=== PATIENT | male | born 1970 | race African-American/Black ===

== ENCOUNTER 2017-02-03 12:51 | Emergency (ER) | payer SELFPAY ==
[~2017-02-03 12:51] MED LIST: NO MEDS
== END 2017-02-03 13:34 | disposition left against medical advice (07) ==
LOC: EMS 12:52
DX: Z00.8 Encounter for other general examination (principal); Z53.21 Procedure and treatment not carried out due to patient leaving prior to being seen by health care provider

== ENCOUNTER 2017-02-03 17:21 | Emergency (ER) | payer SELFPAY ==
[~2017-02-03] VITALS: Ht 188 cm; Wt 90.9 kg
[2017-02-03 17:24] VITALS: BP 130/75
== END 2017-02-03 20:49 | disposition left against medical advice (07) ==
LOC: EMS 17:30
DX: F22 Delusional disorders (principal); F12.90 Cannabis use, unspecified, uncomplicated; F17.210 Nicotine dependence, cigarettes, uncomplicated; Z53.21 Procedure and treatment not carried out due to patient leaving prior to being seen by health care provider

== ENCOUNTER 2017-02-03 21:12 | Emergency (ER) | payer SELFPAY ==
[~2017-02-03] VITALS: Ht 185.4 cm; Wt 90.9 kg
[2017-02-03 21:14] VITALS: BP 165/102
== END 2017-02-03 22:09 | disposition left against medical advice (07) ==
LOC: EMS 21:14
DX: Z00.8 Encounter for other general examination (principal); F12.90 Cannabis use, unspecified, uncomplicated; F17.210 Nicotine dependence, cigarettes, uncomplicated; Z53.21 Procedure and treatment not carried out due to patient leaving prior to being seen by health care provider

== ENCOUNTER 2017-02-22 11:39 | Emergency (ER) | payer SELFPAY ==
[~2017-02-22] VITALS: Ht 185.4 cm; Wt 86.4 kg
[2017-02-22 11:47] VITALS: BP 147/92
[2017-02-22] MEDS ORDERED: KETOROLAC TROMETHAMINE 60 MG/2 ML VIAL IM ONE (14:00)
== END 2017-02-22 14:30 | disposition left against medical advice (07) ==
LOC: EMS 11:40
DX: M25.572 Pain in left ankle and joints of left foot (principal); F12.90 Cannabis use, unspecified, uncomplicated; F17.210 Nicotine dependence, cigarettes, uncomplicated; Z53.21 Procedure and treatment not carried out due to patient leaving prior to being seen by health care provider
CPT/HCPCS: 29515; 99281

== ENCOUNTER 2018-08-05 14:59 | Inpatient (IN) | payer OTHER, MEDICAID ==
[~2018-08-05] VITALS: Ht 185.4 cm; Wt 88.8 kg
[2018-08-05 16:54] LABS: GLUCOSE,POINT OF CARE 93 MG/DL (70-110)
[2018-08-05] MEDS ORDERED: LORazepam 2 MG/ML VIAL ONE (17:14)
[2018-08-05] MEDS ORDERED: DiphenhydrAMINE HCL 50 MG/ML VIAL ONE (17:14)
[2018-08-05] MEDS ORDERED: DiphenhydrAMINE HCL 50 MG/ML VIAL IM ONE (17:15)
[2018-08-05] MEDS ORDERED: HALOPERIDOL LACTATE 5 MG/ML VIAL IM ONE (17:15)
[2018-08-05] MEDS ORDERED: HALOPERIDOL LACTATE 5 MG/ML VIAL ONE (17:15)
[2018-08-05] MEDS ORDERED: LORazepam 2 MG/ML VIAL IM ONE (17:15)
[2018-08-05] MEDS ORDERED: PALI156D IM (17:27)
[2018-08-05] MEDS ORDERED: METO25 PO (17:27)
[2018-08-05 17:52] LABS: BASOPHILS % (AUTO) 0.5 % (0.0-2.0); EOSINOPHILS % (AUTO) 2.2 % (1.0-6.0); HEMATOCRIT 36.6 % (41-53); HEMOGLOBIN 11.8 g/dL (13.5-17.5); LYMPHOCYTES # (AUTO) 1.9 K/uL (1.0-4.8); LYMPHOCYTES % (AUTO) 23.2 % (22.0-44.0); MEAN CORPUSCULAR HEMOGLOBIN 28.5 pg (26.0-34.0); MEAN CORPUSCULAR HGB CONC 32.3 G/dL (31.0-37.0); MEAN CORPUSCULAR VOLUME 88 fL (80-100); MONOCYTES # (AUTO) 0.5 K/uL (0.1-1.0); MONOCYTES % (AUTO) 6.4 % (2.0-9.0); NEUTROPHILS # (AUTO) 5.5 K/uL (1.8-7.7); NEUTROPHILS % (AUTO) 67.7 % (40.0-70.0); PLATELET COUNT (AUTO) 190 K/uL (150-450); RED BLOOD CELL COUNT(AUTO) 4.15 MIL/uL (4.50-5.90); RED CELL DISTRIBUTION WIDTH 14.9 % (11.5-14.5)
[2018-08-05 18:09] LABS: ANION GAP 10 mmol/L (8-16); CALCIUM, TOTAL 8.8 mg/dL (8.8-10.5); CARBON DIOXIDE 26 mmol/L (22-29); CHLORIDE 107 mmol/L (98-107); CREATININE 0.97 mg/dL (0.60-1.30); GLOMERULAR FILTR. RATE CALC > 60 mL/min (>60); GLUCOSE,RANDOM 83 mg/dL (70-110); POTASSIUM 3.6 mmol/L (3.5-5.1); SODIUM SERUM 143 mmol/L (136-145); UREA NITROGEN, BLOOD 6 mg/dL (7-18)
[2018-08-05 18:09] LABS: AMPHET/METH SCREEN,URINE NEGATIVE (NEGATIVE); BARBITURATE SCREEN, URINE NEGATIVE (NEGATIVE); BENZODIAZEPINES SCREEN,URINE NEGATIVE (NEGATIVE); CANNABINOID SCREEN,URINE POSITIVE (NEGATIVE); COCAINE SCREEN,URINE NEGATIVE (NEGATIVE); METHADONE SCREEN, URINE NEGATIVE (NEGATIVE); OPIATE SCREEN,URINE NEGATIVE (NEGATIVE)
[2018-08-05 18:10] LABS: PHENCYCLIDINE SCREEN,URINE NEGATIVE (NEGATIVE)
[2018-08-05 18:14] LABS: ALANINE AMINOTRANSFERASE 32 U/L (12-78); ALBUMIN 3.3 g/dL (3.4-5.0); ALKALINE PHOSPHATASE 97 U/L (46-116); ASPARTATE AMINOTRANSFERASE 56 U/L (15-37); BILIRUBIN,TOTAL 0.4 mg/dL (0.1-1.0); TOTAL PROTEIN, SERUM 6.7 g/dL (6.4-8.2)
[2018-08-05] MEDS ORDERED: ACETAMINOPHEN 325 MG TABLET PO PRN (19:45)
[2018-08-05] MEDS ORDERED: IBUPROFEN 400 MG TABLET PO PRN (19:45)
[2018-08-05] MEDS ORDERED: HALOPERIDOL 5 MG TABLET PO PRN (19:45)
[2018-08-05 21:27] VITALS: BP 148/96
[2018-08-05] MEDS ORDERED: GuaiFENesin/D-METHORPHAN [SUGAR-FREE] 200-20MG/10 ML SYRUP UDCUP PO PRN (22:45)
[2018-08-05] MEDS ORDERED: PETROLATUM,WHITE 28 GM JELLY TP PRN (22:45)
[2018-08-05] MEDS ORDERED: DOCUSATE SODIUM 100 MG CAPSULE PO PRN (22:45)
[2018-08-05] MEDS ORDERED: ALBUTEROL SULFATE HFA 90 MCG/PUFF 8 GM INHALER IH PRN (22:45)
[2018-08-05] MEDS ORDERED: MAGNESIUM HYDROXIDE SUSPENSION 30 ML UDCUP PO PRN (22:45)
[2018-08-05] MEDS ORDERED: MAG HYDROX/AL HYDROX/SIMETH ES 30 ML SUSPENSION UDCUP PO PRN (22:45)
[2018-08-05] MEDS ORDERED: ONDANSETRON HCL 4 MG TABLET PO PRN (22:45)
[2018-08-06 05:58] LABS: BASOPHILS % (AUTO) 0.6 % (0.0-2.0); EOSINOPHILS % (AUTO) 3.6 % (1.0-6.0); HEMATOCRIT 37.5 % (41-53); HEMOGLOBIN 12.3 g/dL (13.5-17.5); LYMPHOCYTES # (AUTO) 1.9 K/uL (1.0-4.8); LYMPHOCYTES % (AUTO) 27.5 % (22.0-44.0); MEAN CORPUSCULAR HEMOGLOBIN 28.7 pg (26.0-34.0); MEAN CORPUSCULAR HGB CONC 32.8 G/dL (31.0-37.0); MEAN CORPUSCULAR VOLUME 88 fL (80-100); MONOCYTES # (AUTO) 0.6 K/uL (0.1-1.0); MONOCYTES % (AUTO) 9.2 % (2.0-9.0); NEUTROPHILS % (AUTO) 59.1 % (40.0-70.0); PLATELET COUNT (AUTO) 198 K/uL (150-450); RED BLOOD CELL COUNT(AUTO) 4.28 MIL/uL (4.50-5.90); RED CELL DISTRIBUTION WIDTH 14.6 % (11.5-14.5)
[2018-08-06 06:24] LABS: HEMOGLOBIN A1C 4.9 % (4.5-6.2)
[2018-08-06 06:29] LABS: ALANINE AMINOTRANSFERASE 29 U/L (12-78); ALBUMIN 2.9 g/dL (3.4-5.0); ALKALINE PHOSPHATASE 93 U/L (46-116); ANION GAP 8 mmol/L (8-16); ASPARTATE AMINOTRANSFERASE 42 U/L (15-37); BILIRUBIN,TOTAL 0.7 mg/dL (0.1-1.0); CALCIUM, TOTAL 8.6 mg/dL (8.8-10.5); CARBON DIOXIDE 29 mmol/L (22-29); CHLORIDE 108 mmol/L (98-107); CHOL/HDL RATIO 2.4 (4.2-7.3); CHOLESTEROL 124 mg/dL (131-200); CREATININE 0.96 mg/dL (0.60-1.30); GLOMERULAR FILTR. RATE CALC > 60 mL/min (>60); GLUCOSE,RANDOM 86 mg/dL (70-110); HDL CHOLESTEROL 51 mg/dL (40-60); LDL CHOL (CALC.) 62 mg/dL (0-130); SODIUM SERUM 145 mmol/L (136-145); THYROID STIMULATING HORMONE 0.28 uIU/mL (0.36-3.74); TOTAL PROTEIN, SERUM 6.2 g/dL (6.4-8.2); TRIGLYCERIDES 56 mg/dL (15-150); UREA NITROGEN, BLOOD 7 mg/dL (7-18)
[2018-08-06 08:35] VITALS: BP 145/103
[2018-08-06 16:33] VITALS: BP 186/101
[2018-08-06] MEDS: CloNIDine HCL 0.1 MG TABLET PO PRN (16:47)
[2018-08-06] MEDS: LORazepam 2 MG TABLET PO PRN (16:47)
[2018-08-06] MEDS: CLINDAMYCIN HCL 300 MG CAPSULE PO SCH (17:17)
[2018-08-06] MEDS: CHLORHEXIDINE GLUCONATE 0.12% 15 ML UDCUP ORAL RINSE PO SCH (17:17)
[2018-08-06 17:36] VITALS: BP 149/90
[2018-08-06] MEDS: PALIPERIDONE 6 MG ER TABLET PO SCH ×2 (20:28→20:37)
[2018-08-07 01:06] VITALS: BP 148/98
[2018-08-07] MEDS: ZOLPIDEM TARTRATE 10 MG TABLET PO PRN (01:15)
[2018-08-07 08:10] VITALS: BP 166/132
[2018-08-07] MEDS: CLINDAMYCIN HCL 300 MG CAPSULE PO SCH ×3 (08:15→16:50)
[2018-08-07] MEDS: CHLORHEXIDINE GLUCONATE 0.12% 15 ML UDCUP ORAL RINSE PO SCH ×2 (08:15→17:12)
[2018-08-07] MEDS: LORazepam 2 MG TABLET PO PRN ×2 (08:16→16:50)
[2018-08-07] MEDS: METOPROLOL TARTRATE 25 MG TABLET PO SCH (08:20)
[2018-08-07 09:40] VITALS: BP 152/111
[2018-08-07] MEDS: CloNIDine HCL 0.1 MG TABLET PO PRN ×2 (16:50→16:55)
[2018-08-07 16:52] VITALS: BP 172/116
[2018-08-07] MEDS: DIVALPROEX SODIUM 500 MG DR TABLET PO SCH (19:16)
[2018-08-07] MEDS: PALIPERIDONE 6 MG ER TABLET PO SCH (20:56)
[2018-08-08 01:00] VITALS: BP 160/112
[2018-08-08] MEDS: ZOLPIDEM TARTRATE 10 MG TABLET PO PRN (01:00)
[2018-08-08 05:20] VITALS: BP 150/112
[2018-08-08] MEDS: METOPROLOL TARTRATE 25 MG TABLET PO SCH (08:15)
[2018-08-08] MEDS: CLINDAMYCIN HCL 300 MG CAPSULE PO SCH ×3 (08:15→16:09)
[2018-08-08] MEDS: CHLORHEXIDINE GLUCONATE 0.12% 15 ML UDCUP ORAL RINSE PO SCH ×2 (08:15→16:09)
[2018-08-08] MEDS: DIVALPROEX SODIUM 500 MG DR TABLET PO SCH ×2 (08:16→16:11)
[2018-08-08 13:29] VITALS: BP 150/115
[2018-08-08 16:05] VITALS: BP 154/92
[2018-08-08] MEDS ORDERED: HALOPERIDOL LACTATE 5 MG/ML VIAL ONE (16:40)
[2018-08-08] MEDS ORDERED: LORazepam 2 MG/ML VIAL ONE (16:40)
[2018-08-08] MEDS ORDERED: DiphenhydrAMINE HCL 50 MG/ML VIAL ONE (16:41)
[2018-08-08] MEDS ORDERED: DiphenhydrAMINE HCL 50 MG/ML VIAL IM ONE (16:45)
[2018-08-08] MEDS ORDERED: LORazepam 2 MG/ML VIAL IM ONE ×2 (16:45→21:15)
[2018-08-08] MEDS ORDERED: HALOPERIDOL LACTATE 5 MG/ML VIAL IM ONE ×2 (16:45→21:15)
[2018-08-08] MEDS: NICOTINE 14 MG/24 HOUR PATCH TD PRN (17:09)
[2018-08-08] MEDS: PALIPERIDONE 6 MG ER TABLET PO SCH (21:00)
[2018-08-09 06:43] VITALS: BP 157/108
[2018-08-09 08:19] VITALS: BP 147/98
[2018-08-09] MEDS: CLINDAMYCIN HCL 300 MG CAPSULE PO SCH ×3 (09:24→17:27)
[2018-08-09] MEDS: DIVALPROEX SODIUM 500 MG DR TABLET PO SCH ×2 (09:24→17:27)
[2018-08-09] MEDS: CHLORHEXIDINE GLUCONATE 0.12% 15 ML UDCUP ORAL RINSE PO SCH ×2 (09:25→17:28)
[2018-08-09] MEDS: METOPROLOL TARTRATE 25 MG TABLET PO SCH ×2 (09:25→17:28)
[2018-08-09 11:43] VITALS: BP 138/117
[2018-08-09] MEDS: LORazepam 2 MG TABLET PO PRN (15:08)
[2018-08-09] MEDS: PALIPERIDONE 6 MG ER TABLET PO SCH (20:36)
[2018-08-10] MEDS: DIVALPROEX SODIUM 500 MG DR TABLET PO SCH ×2 (07:48→16:17)
[2018-08-10] MEDS: LORazepam 2 MG TABLET PO PRN ×2 (07:48→20:08)
[2018-08-10] MEDS: METOPROLOL TARTRATE 25 MG TABLET PO SCH ×2 (07:49→16:17)
[2018-08-10] MEDS: CHLORHEXIDINE GLUCONATE 0.12% 15 ML UDCUP ORAL RINSE PO SCH ×2 (07:49→16:16)
[2018-08-10] MEDS: CLINDAMYCIN HCL 300 MG CAPSULE PO SCH ×3 (07:49→16:17)
[2018-08-10] MEDS: NICOTINE 14 MG/24 HOUR PATCH TD PRN (07:49)
[2018-08-10] MEDS: LOPERAMIDE HCL 2 MG CAPSULE PO PRN ×3 (07:52→17:38)
[2018-08-10 10:14] VITALS: BP 152/115
[2018-08-10] MEDS: AmLODIPine BESYLATE 10 MG TABLET PO SCH (11:16)
[2018-08-10] MEDS: ZOLPIDEM TARTRATE 10 MG TABLET PO PRN (20:08)
[2018-08-10] MEDS: PALIPERIDONE 6 MG ER TABLET PO SCH (20:08)
[2018-08-10 22:48] VITALS: BP 136/95
[2018-08-11] MEDS: LOPERAMIDE HCL 2 MG CAPSULE PO PRN ×2 (04:41→12:07)
[2018-08-11 04:42] VITALS: BP 183/105
[2018-08-11] MEDS: METOPROLOL TARTRATE 25 MG TABLET PO SCH (07:41)
[2018-08-11] MEDS: DIVALPROEX SODIUM 500 MG DR TABLET PO SCH (07:41)
[2018-08-11] MEDS: CLINDAMYCIN HCL 300 MG CAPSULE PO SCH ×2 (07:41→12:07)
[2018-08-11] MEDS: CHLORHEXIDINE GLUCONATE 0.12% 15 ML UDCUP ORAL RINSE PO SCH (07:41)
[2018-08-11] MEDS: NICOTINE 14 MG/24 HOUR PATCH TD PRN (07:41)
[2018-08-11] MEDS: AmLODIPine BESYLATE 10 MG TABLET PO SCH (07:42)
[2018-08-11 08:50] VITALS: BP 157/112
[2018-08-11] MEDS ORDERED: AMLO-512 PO (08:59)
[2018-08-11] MEDS ORDERED: PERID15L MM (08:59)
[2018-08-11] MEDS ORDERED: CLIN300C3 PO (09:00)
[2018-08-11] MEDS ORDERED: DIVA-78 PO (09:00)
[2018-08-11] MEDS ORDERED: PALI6 PO (09:00)
== END 2018-08-11 14:28 | disposition home or self-care (01) | DRG 885 ==
LOC: EMS 15:01 → 3EC 20:00
PROVIDERS: ADMIT Psychiatry & Neurology Psychiatry; ATTEND Psychiatry & Neurology Psychiatry
DX: F25.9 Schizoaffective disorder, unspecified (principal); I10 Essential (primary) hypertension; F10.10 Alcohol abuse, uncomplicated; D64.9 Anemia, unspecified; F17.210 Nicotine dependence, cigarettes, uncomplicated; F19.10 Other psychoactive substance abuse, uncomplicated; Z71.6 Tobacco abuse counseling; Z79.899 Other long term (current) drug therapy
CPT/HCPCS: 83036; 84443; G0480; J1200; J1630; J2060